=== PATIENT | male | born 1990 | race American Indian/Alaskan Native ===

== ENCOUNTER 2021-12-07 23:20 | Emergency (ER) | payer OTHER ==
[~2021-12-07] VITALS: Ht 180.3 cm; Wt 86.2 kg
[2021-12-07 23:58] VITALS: BP 135/87
--- NOTE | 2021-12-08 00:37 | NUR ---
Dr. Hatfield examming patient.
[2021-12-08] MEDS ORDERED: AMOXICILLIN 500 MG CAP PO ONE (00:50)
[2021-12-08] MEDS ORDERED: AMOX-999 PO (00:52)
[2021-12-08] MEDS ORDERED: BACITRACIN OINT 500 UNITS/GM PKT TP ONE ×2 (01:36→01:40)
[2021-12-08 01:54] VITALS: BP 124/82
== END 2021-12-08 01:54 | disposition home or self-care (01) ==
LOC: MED 23:20
DX: S61.432A Puncture wound without foreign body of left hand, initial encounter (principal); Z79.2 Long term (current) use of antibiotics; W26.0XXA Contact with knife, initial encounter; Y93.89 Activity, other specified; Y92.89 Other specified places as the place of occurrence of the external cause; Y99.8 Other external cause status
CPT/HCPCS: 90471; 90715; 99283